=== PATIENT | female | born 1980 | race Caucasian/White ===

== ENCOUNTER 2016-10-17 18:33 | Inpatient (IN) | payer OTHER ==
[~2016-10-17] VITALS: Ht 165.1 cm; Wt 75.2 kg
[~2016-10-17 18:33] MED LIST: FISH1CAP16 PO; [UNRECOGNIZED DRUG - OTHER] PO
[2016-10-17 18:40] VITALS: BP 100/67; PULSE 94; RESP 16; O2SAT 97
[2016-10-17 20:11] LABS: BASOPHILS % (AUTO) 0.1 % (0-3); EOSINOPHILS % (AUTO) 0 % (0-5); MONOCYTES % (AUTO) 6.8 % (4-12); Mean Corpuscular Hemoglobin 30.5 pg (27.0-35.0); NEUTROPHILS % (AUTO) 89.1 % (40-74); Platelet Count 227 bil/L (150-400)
[2016-10-17 20:41] LABS: Magnesium 1.9 mg/dL (1.6-2.6)
[2016-10-17 20:57] LABS: APPEARANCE,URINE CLEAR (CLEAR,HAZY); COLOR,URINE DARK YELLOW (YELLOW); OCCULT BLOOD,URINE LARGE (NEGATIVE); UROBILINOGEN,URINE NORMAL (NORMAL)
--- NOTE | 2016-10-17 21:34 | ED.REPORT ---
HPI-Abd Pain F Under 40 Date of Service Oct 17, 2016 ED Provider: Henry Ambriz DO Pt is an otherwise healthy 36 year old female who presents to the ED complaining of abdominal pain onset today. She c/o associated nausea, vomiting ( 1x) bilaterally back pain, and increased urination. She denies diarrhea and dysuria. The pt denies , and reports that she has a kidney infection a few years ago. The pt was seen at urgent care regarding her symptoms and they determined she had a high WBC, and told her to come to the ER to be tested for a kidney infection. Nursing Notes Stated Complaint: URGENT CARE/HIGH WHITE BLOOD COUNT Chief Complaint: Female Abdominal Pain Allergies: Coded Allergies: No Known Allergies (Verified , 08/21/11) General Time Seen by MD: 21:33 Chief Complaint Abdominal pain Hx Obtained From: Patient Arrived By: Walk-in Sudden in Onset?: No Onset Occurred: 5 - 8 hours ago Symptom Duration: Since onset Severity: Current: Moderate Severity: Maximum: Moderate Recent Healthcare: No recent hospitalization, Recent doctor visit Similar Sx Previous: No Past Medical History Past Medical History Eczema Past Surgical History C-sections (3x) LEEP Smoking History Unknown if Ever Smoker Social History Alcohol Use: "Social" Drug Use: Denies drug use Ambulatory Status Independent Review of Systems GI: Reports: Abdominal pain, Nausea, Denies: Diarrhea, Vomiting Female: Reports: Urination increased Musculoskeletal: Reports: Back pain Complete sys rev & neg: except as marked. Physical Exam Initial Vital Signs Vital Signs (First) Date Time Temp Pulse Resp B/P Pulse Ox O2 Delivery O2 Flow Rate FiO2 10/17/16 18:40 37.3 94 16 100/67 97 Room Air Initial VS: Reviewed Head / Eyes: Atraumatic, Normocephalic, PERRL ENT: Mucous membranes moist, Conjunctiva normal, No scleral icterus Neck: Supple, Full range of motion Extremities: Vascular intact, Neuro intact Skin: Warm, Dry, No cyanosis Neurologic: Alert, Oriented, Nonfocal Psychiatric: Mood/affect normal, Behavior normal General/Constitutional: Awake, Alert, Cooperative, Not toxic appearing Respiratory / Chest: Atraumatic, Breath sounds NL, Breath sounds = bilat Cardiovascular: Heart rate NL, Regular rhythm, Heart sounds NL Abdomen: Atraumatic Diffuse abdominal tenderness Back: Atraumatic, Full range of motion Bilaterally CVA tenderness Interpretation & Diagnostics Lab Results Interpretation Result Diagram: 10/17/16200710/17/162007 Test 10/17/16 20:08 10/17/16 20:35 10/17/16 21:49 White Blood Count 28.2th/mm3 (3.8-10.1) Red Blood Count 4.13mil/mm3 (3.90-5.20) Hemoglobin 12.6g/dL (12.0-15.6) Hematocrit 37.6% (35.0-46.0) Mean Corpuscular Volume 91.0fL (81-100) Mean Corpuscular Hemoglobin 30.5pg (27.0-35.0) Mean Corpuscular Hemoglobin Concent 33.5% (32.0-37.0) Red Cell Distribution Width 12.3% (12.3-15.4) Platelet Count 227bil/L (150-400) Neutrophils (%) (Auto) 89.1% (40-74) Lymphocytes (%) (Auto) 3.6% (14-46) Monocytes (%) (Auto) 6.8% (4-12) Eosinophils (%) (Auto) 0% (0-5) Basophils (%) (Auto) 0.1% (0-3) Sodium Level 133mEq/L (134-144) Potassium Level 4.2mEq/L (3.5-5.2) Chloride Level 97mEq/L (97-108) Carbon Dioxide Level 23mmol/L (18-29) Blood Urea Nitrogen 13mg/dL (6-20) Creatinine 0.66mg/dL (0.57-1.00) Estimat Glomerular Filtration Rate 144mL/min (>59) Glucose Level 115mg/dL (60-99) Lactic Acid Level 2.0mmol/L (0.4-2.0) Calcium Level 9.4mg/dL (8.5-10.1) Magnesium Level 1.9mg/dL (1.6-2.6) Total Bilirubin 0.6mg/dL (0.0-1.2) Aspartate Amino Transf (AST/SGOT) 26U/L (0-50) Alanine Aminotransferase (ALT/SGPT) 26U/L (0-32) Alkaline Phosphatase 72U/L (25-150) Total Protein 7.5g/dL (6.4-8.4) Albumin 4.0g/dL (3.4-5.0) Lipase 18U/L (13-60) Procalcitonin 0.51ng/mL (0.00-0.08) Urine Color Dark yellow (YELLOW) Urine Appearance Clear (CLEAR,HAZY) Urine pH 6.0 (5.0-8.0) Urine Specific [place] 1.026 (1.003-1.035) Urine Protein 100mg/dL (NEG,TRACE) Urine Glucose (UA) Negativemg/dL (NEGATIVE) Urine Ketones Tracemg/dL (NEGATIVE) Urine Occult Blood Large (NEGATIVE) Urine Nitrite Positive (NEGATIVE) Urine Bilirubin Negative (NEGATIVE) Urine Urobilinogen Normalmg/dL (NORMAL) Urine Leukocyte Esterase Trace (NEGATIVE) Urine RBC 3-10/hpf (0-2) Urine WBC >50/hpf (0-5) Urine Epithelial Cells Many/hpf (NONE-MOD) Urine Crystals None seen (NONE SEEN) Urine Bacteria Many/hpf (NONE-FEW) Urine Hyaline Casts None/lpf (NONE) Urine Granular Casts None seen (NONE SEEN) Urine Waxy Casts None seen (NONE SEEN) Urine Red Blood Cell Casts None seen (NONE SEEN) Urine White Blood Cell Casts None seen (NONE SEEN) Urine Mucus None seen (None Seen) Urine Trichomonas None seen (NONE SEEN) Urine Yeast None (NONE SEEN) Urinalysis Comment None Urine Culture Reflexed Indicated Hold Sun Top Tube Received (Received) CT Abd / Pelvis Interpretation Wedge-shaped peripheral hypodensity of the left kidney with adjacent perirenal fat stranding. Findings consistent with acute pyelonephritis of the left kidney. Study type: Abdominal CT IV contrast Interpretation / Wet Read by: Interpret - Radiologist Re-Eval/Medical Decision Med Decision/Clinical Course Taking into account the white blood cell count and abnormal CT scan will admit her for IV fluids, IV antibiotics and urine and blood culture follow-up. Source of Hx: Old records Re-Evaluation/Progress : Time of Eval: 23:32 )( Re-Eval Abdomen: Soft Re-Evaluation/Progress Note: Pt rechecked. She is comfortable. Informed pt of plan for admit. Pt understands and agrees with plan for admit. All questions addressed. Consultation : Referral / Consult Name: Manfred Camarillo MD Consulted With: Hospitalist Call Returned at: 23:18 Repair Armature Winder: Will see patient, Agrees with eval, Agrees with plan, Accepts admit Note: Concurs that pyelonephritis is sepsis Counseled Regarding: Diagnosis, Lab results, Need for admission Discharge & Departure Primary Impression: Pyelonephritis Disposition: ADMITTED TO HOSPITAL Discharge Condition All VS Reviewed: Yes Condition: Stable Referrals: Eben Corbett ND (PCP) Rene Attestation Portions of this note were transcribed by Jovanna Pederson. I, Dr. Ambriz personally performed the history, physical exam and medical decision-making; I reviewed and confirmed the accuracy of the information in the transcribed note. Signed by: Rene Gale, 10/17/16 and 24:00 copies to: bEen Corbett ND, Todd P DO Oct 17, 2016 21:34 Jovanna Waldrop Oct 17, 2016 21:54 Henry Ambriz DO Oct 17, 2016 21:34 Jovanna Waldrop Oct 17, 2016 21:54
[2016-10-17 21:36] VITALS: BP 113/56; PULSE 67; RESP 18; O2SAT 100
[2016-10-17] MEDS ORDERED: HYDROmorphone 0.5 mg/0.5 mL iSecure Syringe IVPUSH PRN (21:50)
[2016-10-17] MEDS ORDERED: Piperacillin-Tazo 3.375 Gm Inj 3.375 GM in Dextrose 5% Minibag Plus 50 ML IV ONE (21:50)
[2016-10-17] MEDS ORDERED: 0.9% Sodium Chloride 1,000 ML IV SCH (21:50)
[2016-10-17] MEDS ORDERED: Ondansetron 2 mg/mL 2 mL Inj IVPUSH PRN (21:55)
[2016-10-17] MEDS ORDERED: Alum-Mag Hydrox-Simeth 30 mL Suspension PO PRN (23:40)
[2016-10-17] MEDS ORDERED: Polyethylene Glycol (PEG) 17 Gm Powder PO PRN (23:40)
[2016-10-18] VITALS (9 sets, daily range): BP systolic 83–122; BP diastolic 48–68; PULSE 74–103; RESP 16–18; O2SAT 96–100
--- NOTE | 2016-10-18 01:11 | NUR ---
ADMIT NOTE Pt arrived to [facility] Room 3001, approx 0000. Pt alert and oriented. Pt able to ambulate from stretcher to bed. Pt states, she feels "woozy" when up. Pt asked to call for assistance for safety. VS obtained. Pt states some headache pain, prn po tylenol given. Pt also reports abdominal pain and bilateral flank tenderness. Pt placed on remote telemetry, process control tech notified. Continue to monitor. Call light in reach. Boyfriend in room. Intentional rounding.
--- NOTE | 2016-10-18 02:02 | PCM.HPMED ---
Subjective Date of Service Oct 18, 2016 Primary Provider: Admitting Physician: Manfred Camarillo MD Primary Care Physician: Eben Corbett ND Attending Physician: Manfred Camarillo MD Admit Status: From the Emergency Department Chief Complaint: Fever or chills, nausea and abdominal and flank pain History of Present Illness: Patient is a 36-year-old female with past medical history remarkable for 3 prior C-sections, LEEP procedure, thermal ablation of the uterine lining due to her irregular menstrual bleeding who presents with 3 days of fever or chills, nausea, flank and abdominal pain. The patient states that on Sunday, October 15 she woke up feeling early poor with subjective fever and chills, abdominal discomfort, and headache. The patient states that when she woke up on October 16 she felt somewhat better and attempted to go to work however the prior day's symptoms returned worse than before with increased left-sided flank pain, and dizziness. The patient denies any dysuria or unusual vaginal discharge at this time. The patient has noticed some mild hematuria increased urgency and frequent sleep and is unsure if the blood not associated with her menstrual cycle at this time given she has irregular bleeding. Review of Systems: A comprehensive review of systems is obtained and all are negative except for what is included in the history of present illness. 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[employer] Hx Alcohol Use: Yes ("Occasional beer now and then") Hx Substance Use: No Hx Tobacco Use: No Smoking Status: Never Smoker Living Arrangement: with Family (in [place]) Exam Vital Signs Vital Sign - Last Date Time Temp Pulse Resp B/P Pulse Ox O2 Delivery O2 Flow Rate FiO2 10/18/16 00:23 101 10/18/16 00:12 37.3 16 122/ 99 Room Air Intake and Output 10/17/16 10/17/16 10/18/16 Cumulative From/Thru 15:00 23:00 07:00 10/17/16 18:40 - 10/18/16 00:04 Intake Total 1000 ml 1000 ml Balance 1000 ml 1000 ml Intake IV Total 1000 ml 1000 ml Exam Gen.: Young pleasant female, in good hygiene, in no acute distress lying in bed with her Eyes: Pupils equal round reactive to light, extraocular motion intact, anicteric sclera, noninjected conjunctiva HENT: Normocephalic atraumatic, moist mucous membranes without central cyanosis , oropharynx clear without cobblestoning mucosa Neck: Supple, trachea midline, without JVD or thyromegaly Cardiovascular: Regular rate and rhythm without murmurs rubs or gallops Lungs: clear auscultation bilaterally without wheezing rales or rhonchi Abdomen: Soft, nontender, nondistended, tympanic to percussion Back: Positive Serge sign on left side Extremities: Pulses intact at dorsalis pedis and radial bilaterally, without cyanosis, clubbing or edema Skin: Warm and diaphoretic, without notable rashes : No Curtis in place Neuro: Nonfocal, able to move all extremities spontaneously Psych: Normal mood and affect Lab and Diagnostics Result Diagram: 10/17/16200710/17/162007 X-Rays, CTs and MRIs Unofficial nighthawk reading Impression 1. Wedge-shaped peripheral hypodensity of the left kidney with perinephric fat stranding. Consistent with acute pyelonephritis of the left kidney. Assessment & Plan Patient is a 36-year-old female with past medical history remarkable for 3 prior C-sections, LEEP procedure, thermal ablation of the uterine lining due to her irregular menstrual bleeding as well as left-sided pyelonephritis in 2010 who presents with 3 days of fever or chills, nausea, flank and abdominal pain. # Sepsis - Sirs positive with White blood cell count of 28.2, pulse of 94, temperature 37.3 and respiratory rate of 16 - Borderline severe sepsis with lactic acid of 2 this will be redrawn with morning labs - IV fluids started in the emergency department with 1 L bolus of normal saline and normal saline continued at 100 mL's per hour - Source of infection left-sided pyelonephritis described below # Acute Left sided pyelonephritis - Patient has a history of left-sided pyelonephritis from 2011 - Patient describes 3 days of worsening fever or chills, nausea, dizziness, left sided flank pain with increased urinary urgency and frequency - Sepsis picture described above, with UA showing many bacteria greater than 50 white blood cells positive nitrites and trace leukocytes esterase making urinary tract infection likely - Preliminary Nighthawk read shows peripheral hypodensity with perinephric fat stranding consistent with acute pyelonephritis - Patient was started on Zosyn overnight this will be good discontinued for less broad antibiotic coverage given patient is relatively antibiotic hernán and a young healthy patient - Rocephin 2000 mg daily # Mild hyponatremia - Sodium of 133 at admission - Normal saline started in the emergency department - Continue NS at 100 mL per hour - Monitor DVT prophylaxis: Enoxaparin 40 mg subcutaneous daily GI prophylaxis: Not indicated at this time CODE STATUS full The patient is admitted for inpatient status given her presenting symptoms, likely diagnosis, possible complications, and required treatments expected length of stay is greater than 2 midnights Pain Evaluation: Adequate Pain Control GI Prophylaxis: Not indicated VTE Prophylaxis Indicated: Meets Criteria for Anticoag Therapy VTE Prophylaxis: Sub-Q Enoxaparin, SCDs VTE Mechanical Devices: Intermittant Pneumatic CD Resuscitation Status: CPR: Attempt Resuscitation Attending Statement The patient was seen and examined together with Dr. Garcia on 10/17 and I agree with the history, exam and plan as outlined in the note above. Lam Jerome DO Oct 18, 2016 01:48 Manfred Camarillo MD Oct 18, 2016 06:58
[2016-10-18] MEDS: 0.9% Sodium Chloride 1,000 ML IV SCH ×3 (05:25→23:19)
[2016-10-18] MEDS: cefTRIAXone Inj 2,000 MG in Dextrose 5% Minibag Plus 50 ML IV SCH (05:56)
[2016-10-18] MEDS: HYDROcodone-APAP 5-325 mg Tablet PO PRN ×4 (06:00→20:34)
[2016-10-18] MEDS: Ondansetron 2 mg/mL 2 mL Inj IVPUSH PRN ×2 (06:00→13:48)
--- NOTE | 2016-10-18 06:36 | NUR ---
BP During routine VS, BP 83/48. Pt states, "My blood pressure is usually low." Night resident notified of BP. Orders to continued IVF: NS @ 100ml/hr.
--- NOTE | 2016-10-18 07:08 | DRSVH ---
PROCEDURE: CT ABDOMEN AND PELVIS WITH CONTRAST ([id number]) INDICATIONS: diffuse pain, 28K wbc count TECHNIQUE: After the administration of intravenous contrast, 5 mm thick sections acquired from the diaphragm to the symphysis. 5 mm coronal and sagittal reformats were acquired. For radiation dose reduction, the following was used: automated exposure control, adjustment of mA and/or kV according to patient siz e. COMPARISON: None. FINDINGS: Image quality: Excellent. ABDOMEN: Lung bases: Lung bases are clear. Heart size is normal. Solid organs: Normal liver, gallbladder, pancreas, spleen adrenal glands and right kidney. There is a wedge-shaped area of decreased density in the posterior lateral left kidney measuring 3.0 x 3.7 CM. Mild left ureterectasis with no obstructing lesions identified. Heterogeneous uterus is present. Peritoneum and bowel: Bowel loops demonstrate normal wall thickness and caliber. No free fluid or a ir. Nodes and vessels: No retroperitoneal or mesenteric adenopathy by size criteria. Aorta and inferior vena cava are normal in size. Miscellaneous: Trace free fluid in the pelvic cul-de-sac.. PELVIS: Genitourinary: Bladder wall thickness is normal. Heterogeneous uterine parenchyma. Miscellaneous: No inguinal hernias or adenopathy. Bones: No suspicious bony lesions. No vertebral body compression fractures. IMPRESSION: 1. Left pyelonephritis with phlegmon or abscess. 2. There are no discrepancies with the preliminary report. Dictated by: Trever Yates M.D. on 10/18/2016 at 6:54 Approved by: Trever Yates M.D. on 10/18/2016 at 7:00
--- NOTE | 2016-10-18 10:32 | NUR ---
Case Management: TUNDE given and explained to pt. Yesika FOSTER RN
--- NOTE | 2016-10-18 14:55 | NUR ---
Social Work-screening: Data:EMR Reviewed. Pt is a 36 y/o female who was admitted on 10/17/16 for pyelonephritis per H&P. Pt's insurance is Self pay and PCP is Eben Corbett Md. EMR Reviewed. SW met with pt, boyfriend, friend, and sister at bedside, SW role explained. Pt is normally independent at baseline and does not have insurance. SW confirmed that [facility] has received referral. SW provided pt with [facility] application as well. Pt confirms she has never completed DPOA/ advanced directive paperwork,pt declining any information. Pt's family to provide transport home at discharge. SW provided phone number and plan on white board in room. No anticipated discharge needs. SW will continue to follow if needs arise. Assessment:pt who is independent at baseline. Plan:Pt to discharge home when medically stable via POV. Pt has been provided with [facility] application and [facility] to see pt. No anticipated discharge needs. SW will continue to follow if needs arise. VIJAYA Saldivar
--- NOTE | 2016-10-18 15:13 | NUR ---
Pain: Pt a/o, VSS, tele SR 70s-80s, RA O2 sats 95% and greater. Up ad shirley in room, no gait instability noted, showered independently. Pt c/o headache that she feels is related to shivering, warm blankets provided as needed. Vicodin given x1, not very effective for pain. Flexeril given x1, pt sleeping approx 30 minutes later. Friend and SO at bedside, care ongoing.
--- NOTE | 2016-10-18 15:24 | PCM.PNMED ---
Subjective Date of Service Oct 18, 2016 Subjective Still experiencing intermittent sweats chills, in addition to tightness in her neck she believes is causing worsening headache. Overall she is improved from yesterday however. Notes some reddish coloration to urine but no nancy blood. Denies flank pain currently. Denies any shortness of breath or chest pain. Exam Vital Signs Vital Sign - Last Date Time Temp Pulse Resp B/P Pulse Ox O2 Delivery O2 Flow Rate FiO2 10/18/16 12:31 37.0 75 16 93/60 100 Room Air Intake and Output 10/17/16 10/17/16 10/18/16 Cumulative From/Thru 15:00 23:00 07:00 10/17/16 18:40 - 10/18/16 06:03 Intake Total 1000 ml 621 ml 1621 ml Output Total 350 ml 350 ml Balance 1000 ml 271 ml 1271 ml Intake Oral 200 ml 200 ml IV Total 1000 ml 421 ml 1421 ml Output Urine Total 350 ml 350 ml General: Alert, Oriented X3, Cooperative, Moderate Distress Mouth: Mucous Membr Moist/[place] Neck: Supple, Other (hypertonicity paraspinal muscles of cervical region) Chest & Lungs: Clear to auscultation & percussion Cardiovascular: Regular Rate/Rhythm Abdomen: Tender, Distended Extremities: No cyanosis/clubbing/edma bilat Neurological: Grossly Neurologically Intact IVs and Medications Medications Reviewed: Medications were reviewed in detail Lab and Diagnostics Result Diagram: 10/17/16200710/18/16 0510 X-Rays, CTs and MRIs Unofficial nighthawk reading Impression 1. Wedge-shaped peripheral hypodensity of the left kidney with perinephric fat stranding. Consistent with acute pyelonephritis of the left kidney. Assessment & Plan Patient is a 36-year-old female with past medical history remarkable for 3 prior C-sections, LEEP procedure, thermal ablation of the uterine lining due to her irregular menstrual bleeding as well as left-sided pyelonephritis in 2010 who presents with 3 days of fever or chills, nausea, flank and abdominal pain. # Sepsis - Sirs positive with White blood cell count of 28.2, pulse of 94, temperature 37.3 and respiratory rate of 16 - Borderline severe sepsis with lactic acid of 2 this will be redrawn with morning labs, now downward trending. - Continue IV fluids started in the emergency department at 100cc/hr, consider tapering with stabilizing condition and good PO intake of fluids. - Source of infection left-sided pyelonephritis described below # Acute Left sided pyelonephritis - Patient has a history of left-sided pyelonephritis from 2010 - Patient describes 3 days of worsening fever or chills, nausea, dizziness, left sided flank pain with increased urinary urgency and frequency - Sepsis picture described above, with UA showing many bacteria greater than 50 white blood cells positive nitrites and trace leukocytes esterase making urinary tract infection likely - Preliminary Nighthawk read shows peripheral hypodensity with perinephric fat stranding consistent with acute pyelonephritis - Patient was started on Zosyn overnight this will be good discontinued for less broad antibiotic coverage given patient is relatively antibiotic hernán and a young healthy patient - Continue Rocephin 2000 mg daily while awaiting culture result. # Mild hyponatremia - Sodium of 133 at admission, now normalized - Normal saline started in the emergency department - Continue NS at 100 mL per hour - Monitor DVT prophylaxis: Enoxaparin 40 mg subcutaneous daily GI prophylaxis: Not indicated at this time CODE STATUS full The patient is admitted for inpatient status given her presenting symptoms, likely diagnosis, possible complications, and required treatments expected length of stay is greater than 2 midnights Pain Evaluation: Adequate Pain Control GI Prophylaxis: Not indicated VTE Prophylaxis: Sub-Q Enoxaparin, SCDs VTE Mechanical Devices: Intermittant Pneumatic CD Resuscitation Status: CPR: Attempt Resuscitation Time spent 25 minutes Aleks Husain DO Oct 18, 2016 15:24
--- NOTE | 2016-10-18 17:01 | NUR ---
Fever: Pt with temp of 38.7, MD notified, no new orders received. 2 Vicodin given for temp and c/o headache pain. Care ongoing
[2016-10-19] VITALS (8 sets, daily range): BP systolic 89–102; BP diastolic 45–68; PULSE 63–81; RESP 16–28; O2SAT 93–100
[2016-10-19] MEDS: HYDROcodone-APAP 5-325 mg Tablet PO PRN ×6 (00:37→23:19)
[2016-10-19] MEDS: cefTRIAXone Inj 2,000 MG in Dextrose 5% Minibag Plus 50 ML IV SCH (05:03)
--- NOTE | 2016-10-19 06:02 | NUR ---
PAIN Pt has had c/o pain, primarily in Left flank. Pt rates pain "4-6" when needing pain medication. Pt has been receiving pain medication approx Q4H as ordered. Pt has been able to sleep. Pt is comfortable while in bed, does have some pain when up to BR. Continue to monitor. Call light in reach. Intentional rounding.
[2016-10-19] MEDS: 0.9% Sodium Chloride 1,000 ML IV SCH ×2 (09:56→20:19)
[2016-10-19 11:10] LABS: BASOPHILS % (AUTO) 0.1 % (0-3); EOSINOPHILS % (AUTO) 0.3 % (0-5); MONOCYTES % (AUTO) 11.4 % (4-12); Mean Corpuscular Hemoglobin 30.3 pg (27.0-35.0); Mean Corpuscular Volume 93.8 fL (81-100); NEUTROPHILS % (AUTO) 77.6 % (40-74); Platelet Count 195 bil/L (150-400)
--- NOTE | 2016-10-19 12:46 | PCM.PNMED ---
Subjective Date of Service Oct 19, 2016 Subjective Patient complaining of serious headache today which is her main complaint. It has been unresponsive to Vicodin but only 2 tabs effectively relieve headache for full 4 hours, Tylenol as some use as well. Still notes some vague tightness of chest generalized malaise but has not been experiencing sweats or chills overnight. No reported fevers in 24 hours. Exam Vital Signs Vital Sign - Last Date Time Temp Pulse Resp B/P Pulse Ox O2 Delivery O2 Flow Rate FiO2 10/19/16 09:10 64 10/19/16 08:39 36.4 16 98/61 97 Room Air Intake and Output 10/18/16 10/18/16 10/19/16 Cumulative From/Thru 15:00 23:00 07:00 10/17/16 18:40 - 10/19/16 05:51 Intake Total 2143 ml 1388 ml 5152 ml Output Total 500 ml 1600 ml 2450 ml Balance 1643 ml -212 ml 2702 ml Intake Oral 1100 ml 300 ml 1600 ml IV Total 1043 ml 1088 ml 3552 ml Output Urine Total 500 ml 1600 ml 2450 ml Exam General: Alert, Oriented X3, Cooperative, Moderate Distress Mouth: Mucous Membr Moist/[place] Neck: Supple, Chest & Lungs: Clear to auscultation & percussion Cardiovascular: Regular Rate/Rhythm Abdomen: Tender, Distended Extremities: No cyanosis/clubbing/edma bilat Neurological: Grossly Neurologically Intact IVs and Medications Medications Reviewed: Medications were reviewed in detail Lab and Diagnostics Result Diagram: 10/19/16 1054 10/18/16 0510 X-Rays, CTs and MRIs Unofficial nighthawk reading Impression 1. Wedge-shaped peripheral hypodensity of the left kidney with perinephric fat stranding. Consistent with acute pyelonephritis of the left kidney. Assessment & Plan Patient is a 36-year-old female with past medical history remarkable for 3 prior C-sections, LEEP procedure, thermal ablation of the uterine lining due to her irregular menstrual bleeding as well as left-sided pyelonephritis in 2010 who presents with 3 days of fever or chills, nausea, flank and abdominal pain. # Sepsis - Sirs positive with White blood cell count of 28.2, pulse of 94, temperature 37.3 and respiratory rate of 16 - Borderline severe sepsis with lactic acid of 2 this will be redrawn with morning labs, now downward trending. - Continue IV fluids started in the emergency department at 100cc/hr, consider tapering with stabilizing condition and good PO intake of fluids. , today will taper to 75cc/hr. - Source of infection left-sided pyelonephritis described below # Acute Left sided pyelonephritis - Patient has a history of left-sided pyelonephritis from 2010 - Patient describes 3 days of worsening fever or chills, nausea, dizziness, left sided flank pain with increased urinary urgency and frequency - Sepsis picture described above, with UA showing many bacteria greater than 50 white blood cells positive nitrites and trace leukocytes esterase making urinary tract infection likely - Imaging studies confirm pyelonephritis - Patient was started on Zosyn overnight this will be good discontinued for less broad antibiotic coverage given patient is relatively antibiotic hernán and a young healthy patient - Taper Rocephin from 2000 mg daily to 1000mg while awaiting culture result.Anticipate transition to oral antibiotics tomorrow with stable PO intake. - Cultures demonstrate barriga-sensitivity. # Mild hyponatremia - Sodium of 133 at admission, now normalized - Normal saline started in the emergency department - Continue NS at 75 mL per hour - Monitor DVT prophylaxis: Enoxaparin 40 mg subcutaneous daily GI prophylaxis: Not indicated at this time CODE STATUS full The patient is admitted for inpatient status given her presenting symptoms, likely diagnosis, possible complications, and required treatments expected length of stay is greater than 2 midnights Pain Evaluation: Adequate Pain Control GI Prophylaxis: Not indicated VTE Prophylaxis: Sub-Q Enoxaparin, SCDs VTE Mechanical Devices: Intermittant Pneumatic CD Resuscitation Status: CPR: Attempt Resuscitation Time spent 30 minutes Aleks Husain DO Oct 19, 2016 12:46
--- NOTE | 2016-10-19 17:56 | NUR ---
Pain/SOB The pt continues to have difficult to control pain, but overall has seen an improvement in comparison to yesterday. Some SOB/pain with a chronic headache is being reported, and the MD is aware. The SOB/pain occurs with deep breaths, and is thought to be related to ureter pain.
[2016-10-19] MEDS: Ondansetron 2 mg/mL 2 mL Inj IVPUSH PRN (18:05)
[2016-10-20] VITALS (9 sets, daily range): BP systolic 96–120; BP diastolic 47–79; PULSE 53–79; RESP 16–22; O2SAT 88–98
[2016-10-20] MEDS: HYDROcodone-APAP 5-325 mg Tablet PO PRN (03:23)
[2016-10-20] MEDS ORDERED: cefTRIAXone Inj 1,000 MG in Dextrose 5% Minibag Plus 50 ML IV SCH ×2 (05:30→17:10)
--- NOTE | 2016-10-20 07:31 | NUR ---
Pain Pt c/o headache 12/07 pain and was maxed out on acetaminophen 24hr allowance. MD ordered Oxycodone 5mg and Lorazepam. Pt appeared to be asleep upon reassessment and said that she was able to sleep a little bit. Pt encouraged to get out of bed and sit in a chair to provide comfort for c/o headache. Pt refused to get out of bed at this time. Call light within reach and friend at bedside. Care continues.
--- NOTE | 2016-10-20 09:55 | DRSVH ---
PROCEDURE: X-RAY CHEST ONE VIEW, PORTABLE ([id number]) INDICATIONS: chest discomfort TECHNIQUE: One view of the chest was acquired. COMPARISON: None. FINDINGS: Surgical changes and devices: None. Lungs and pleura: Bibasilar infiltrates are present, associated with atelectasis and small pleural ef fusions. No pneumothorax. Mediastinum: Mediastinal contours appear normal. Heart size is normal. Bones and chest wall: No suspicious bony lesions. Overlying soft tissues appear unremarkable. IMPRESSION: Probable bilateral lower lobe pneumonia for clinical correlation. Dictated by: Mychal Webster M.D. on 10/20/2016 at 9:53 Approved by: Mychal Webster M.D. on 10/20/2016 at 9:54
[2016-10-20] MEDS: 0.9% Sodium Chloride 1,000 ML IV SCH (10:17)
[2016-10-20] MEDS ORDERED: cefTRIAXone Inj 2,000 MG in Dextrose 5% Minibag Plus 50 ML IV SCH (11:00)
--- NOTE | 2016-10-20 13:09 | NUR ---
IV toradol/pain Pt c/o FIGUEROA for several days. Several different medications given with minimal relief. IV toradol given just prior to noon, pt appears 100% better and states pain is now 2/10. Tele now d/c. Pt ambulated on unit several times. Will continue to monitor.
[2016-10-20 15:15] LABS: BASOPHILS % (AUTO) 0.1 % (0-3); EOSINOPHILS % (AUTO) 0.3 % (0-5); MONOCYTES % (AUTO) 10.6 % (4-12); Mean Corpuscular Hemoglobin 30.7 pg (27.0-35.0); Mean Corpuscular Volume 92.6 fL (81-100); NEUTROPHILS % (AUTO) 72.7 % (40-74); Platelet Count 252 bil/L (150-400)
--- NOTE | 2016-10-20 15:32 | DRSVH ---
PROCEDURE: CT CHEST WITHOUT CONTRAST ([id number]) INDICATIONS: ? pneumonia TECHNIQUE: Noncontrast 5 mm thick sections acquired from the pulmonary apices to the posterior costophrenic angl es. 7 mm thick coronal and sagittal MIP reformats were then acquired. For radiation dose reduction, the following was used: automated exposure control, adjustment of mA and/or kV according to patient size. COMPARISON: [facility], CT, CT ABD PELVIS W CON, 10/17/2016, 22:12 FINDINGS: Image quality: Excellent. Lungs and pleura: There are small bilateral low density pleural effusions. There is consolidation of the bilateral lung bases. These findings are new when compared with the prior CT dated 10/17/16. Air b ronchograms are present bilaterally in the consolidated portions of the lung bases. The upper lungs a re well-aerated. A 3 mm diameter pulmonary nodule is present at the posterior left apex. Mediastinum: Heart size is normal. There is a trace pericardial effusion. No mediastinal adenopathy by size criteria. Thoracic aorta and central pulmonary arteries are normal in size. Esophagus is n ormal in caliber. No hiatal hernia. Bones and chest wall: No suspicious bony lesions. No vertebral body compression fractures. No axil kori or supraclavicular adenopathy by size criteria. Thyroid gland is unremarkable. Abdomen: Visualized upper abdominal solid organs and bowel loops appear normal in the absence of con trast. IMPRESSION: 1. New bilateral low density pleural effusions and basilar consolidation when compared with the CT da pietro 10/17/16. These findings suggest aspiration/infection. Please correlate clinically. Dictated by: Madison Hastings M.D. on 10/20/2016 at 15:26 Approved by: Madison Hastings M.D. on 10/20/2016 at 15:30
[2016-10-20] MEDS ORDERED: Piper-Tazo 3.375 Gm/50 mL D5W Minibag Plus - Q8H over 4 hrs IV ONE ×2 (15:35)
--- NOTE | 2016-10-20 15:38 | PCM.PNMED ---
Subjective Date of Service Oct 20, 2016 Subjective Patient continues to feel unwell. Has a tightness in her chest which is worse with deep breaths. She has severe headache which has not responded when necessary medications. Appetite is poor energy level is low. Demonstrated fevers overnight on 2 occasions. Exam Vital Signs Vital Sign - Last Date Time Temp Pulse Resp B/P Pulse Ox O2 Delivery O2 Flow Rate FiO2 10/20/16 12:47 36.4 68 18 120/79 97 Room Air 10/20/16 05:16 2.00 Intake and Output 10/19/16 10/19/16 10/20/16 Cumulative From/Thru 15:00 23:00 07:00 10/17/16 18:40 - 10/20/16 06:21 Intake Total 2226 ml 2672 ml 67778 ml Output Total 640 ml 900 ml 3990 ml Balance 1586 ml 1772 ml 6060 ml Intake Oral 940 ml 400 ml 2940 ml IV Total 1286 ml 2272 ml 7110 ml Output Urine Total 640 ml 900 ml 3990 ml # Voids 1 1 Exam General: Alert, Oriented X3, Cooperative, Moderate Distress Mouth: Mucous Membr Moist/[place] Neck: Supple, Chest & Lungs: Coarse breath sounds diffusely with diminished airflow in lung bases Cardiovascular: Regular Rate/Rhythm Abdomen: Tender, Distended Extremities: No cyanosis/clubbing/edema bilat Neurological: Grossly Neurologically Intact IVs and Medications Medications Reviewed: Medications were reviewed in detail Lab and Diagnostics Result Diagram: 10/20/16 1510 10/18/16 0510 X-Rays, CTs and MRIs Unofficial nighthawk reading Impression 1. Wedge-shaped peripheral hypodensity of the left kidney with perinephric fat stranding. Consistent with acute pyelonephritis of the left kidney. Assessment & Plan Patient is a 36-year-old female with past medical history remarkable for 3 prior C-sections, LEEP procedure, thermal ablation of the uterine lining due to her irregular menstrual bleeding as well as left-sided pyelonephritis in 2010 who presents with 3 days of fever or chills, nausea, flank and abdominal pain. # Sepsis - Sirs positive with White blood cell count of 28.2, pulse of 94, temperature 37.3 and respiratory rate of 16 - Borderline severe sepsis with lactic acid of 2 this will be redrawn with morning labs, now downward trending. - Continue IV fluids started in the emergency department at 100cc/hr, consider tapering with stabilizing condition and good PO intake of fluids. , tapered to 75cc/hr yesterday, now discontinued given effusions and lower lobes of lungs. - Source of infection left-sided pyelonephritis described below, there is some concern for HCAP versus ARDS at this time given Chest CT scan findings # Acute Left sided pyelonephritis - Patient has a history of left-sided pyelonephritis from 2010 - Patient described 3 days of worsening fever or chills, nausea, dizziness, left sided flank pain with increased urinary urgency and frequency - Sepsis picture described above, with UA showing many bacteria greater than 50 white blood cells positive nitrites and trace leukocytes esterase making urinary tract infection likely - Imaging studies confirm pyelonephritis - Patient was started on Zosyn overnight this will be good discontinued for less broad antibiotic coverage given patient is relatively antibiotic hernán and a young healthy patient - Taper Rocephin from 2000 mg daily to 1000mg, but given additional concern for hospital-acquired pneumonia with transition back to Zosyn therapy. - Cultures demonstrate barriga-sensitivity of urine and blood cultures currently negative. #Bilateral lower lobe infiltrate versus effusion - Giving clear lung craft demonstrated on CT abdomen a couple of days prior, these are new findings and if this is truly a pneumonia may represent a hospital -acquired infection - Is also a possibility given pain and guarding related to pyelonephritis, the patient is under ventilating and this is a representation of atelectasis due to poor respiratory effort - Patient may also be developing a reactive condition, also in regards to her pyelonephritis, of the long such as ARDS - Infectious disease has been consulted for further evaluation of patient consideration of his condition - We will trial incentive spirometry at this time in addition to transitioning antibiotic coverage while etiology remains unclear. # Mild hyponatremia - Sodium of 133 at admission, now normalized - Normal saline started in the emergency department - Monitor DVT prophylaxis: Enoxaparin 40 mg subcutaneous daily GI prophylaxis: Not indicated at this time CODE STATUS full Disposition pending further evaluation of pulmonary process in addition to improve patient condition. Anticipate at least 1-2 days. Pain Evaluation: Pain not Controlled GI Prophylaxis: Not indicated VTE Prophylaxis: Sub-Q Enoxaparin, SCDs VTE Mechanical Devices: Venous Foot Pump Resuscitation Status: CPR: Attempt Resuscitation Time spent 35 minutes Aleks Husain DO Oct 20, 2016 15:38
[2016-10-20] MEDS ORDERED: Piperacillin-Tazo 3.375 Gm Inj 3.375 GM in Dextrose 5% Minibag Plus 50 ML IV SCH (20:30)
[2016-10-21 04:06] LABS: Mean Corpuscular Hemoglobin 30.2 pg (27.0-35.0); Mean Corpuscular Volume 90.4 fL (81-100)
[2016-10-21 05:56] VITALS: BP 114/68; PULSE 68; RESP 18; O2SAT 94
[2016-10-21] MEDS ORDERED: cefTRIAXone Inj 1,000 MG in Dextrose 5% Minibag Plus 50 ML IV SCH (08:40)
[2016-10-21] MEDS ORDERED: SULF1TAB7 PO (10:16)
--- NOTE | 2016-10-21 10:19 | PCM.DIMED ---
Discharge Instructions Date of Service Oct 21, 2016 Dates of Hospitalization Oct 17, 2016 at 23:49 Discharge Diagnosis Discharge Diagnosis E. Coli Pyelonephritis Diet Discharge Diet: No restrictions Activity Discharge Activity: No restrictions Call your provider Call your provider for: Fever or Chills, Shortness of breath Patient Instructions Patient Instructions Finish up the bottle of antibiotics - Sulfamethoxazole, that you already have from before admission. Follow-up Provider: Eben Corbett ND Follow-up with PCP in: 1 week Laisha Barbosa MD Oct 21, 2016 10:19
[2016-10-21] MEDS ORDERED: FERR325T6 PO (10:34)
[2016-10-21] MEDS ORDERED: ASCO250T7 PO (10:34)
[2016-10-21 10:42] VITALS: BP 124/81; PULSE 66; RESP 16; O2SAT 97
--- NOTE | 2016-10-21 11:21 | NUR ---
Discharge Pt d/c home with bf and best friend at 1110, ambulating off with and aide. Pt medicated for pain prior to leaving. IV d/c. VSS. All personal belongings left with pt. Discharge info discussed with pt, all questions answered.
--- NOTE | 2016-10-21 11:33 | NUR ---
Social Work: Discharge Data: Pt is on day 4 of hospitalization. EMR reviewed, pt discussed in rounds. D/C orders are in. states no d/c planning needs. CAB STATION ATTENDANT will continue to follow if needs arise. Assessment: Pt who is independent at baseline. Plan: Pt will d/c home via POV today. states no d/c planning needs. CAB STATION ATTENDANT will continue to follow if needs arise. VIJAYA Pa Addendum: 10/21/16 at 1200 by CARLOS ACHARYA SS Pt called CAB STATION ATTENDANT post discharge asking about her insurance status. CAB STATION ATTENDANT check process account and could not find information pt needed. CAB STATION ATTENDANT called [facility], requested they call pt on Sunday morning. CAB STATION ATTENDANT had REGULATORY AFFAIRS DIRECTOR mail pt a tawny care application. VIJAYA Pa
--- NOTE | 2016-10-21 12:23 | CONS ---
[address] [address] CONSULTATION REPORT PATIENT: GABRIEL CHANDRA : 1980 MR#: [id number] ADMIT: 10/17/2016 JOB ID: [id number] DATE OF SERVICE: 10/20/2016 REFERRING PHYSICIAN: I thank Dr. Aleks Husain for this timely consult. REASON FOR CONSULTATION: Pyelonephritis. 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 She has a history of pyelonephritis some five years ago, and also has had some gynecologic issues, including a need for a LEEP procedure and uterine surgery for irregular bleeding, but otherwise, is very healthy. She does not take any medications on a daily basis. She has undergone three sections in the past. She was admitted to this facility on October 18, with a three day history of fevers, chills, nausea, and left-sided flank pain. These symptoms started suddenly, and have been progressive. In addition to the above-mentioned symptoms, she has had some headaches, as well as anorexia. By October 17, the patient felt so poorly that she could no longer go to work, came for evaluation on the , and was admitted because primarily fevers, chills, nausea, and flank pain. PAST MEDICAL HISTORY: 1. Pyelonephritis, 2010. 2. Irregular menses, eventually requiring thermal ablation of the uterine lining. 3. Status post . 4. History of right foot bunion reduction. 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 She is a rare alcohol user, who has never smoked. She lives with her and children. FAMILY HISTORY: Negative for tuberculosis in first or second-degree relatives. REVIEW OF SYSTEMS: At this point, the patient has no residual headache. She denies visual complaints or sore throat. She feels mildly short of breath, and at times, has a dry cough. Nausea and anorexia have essentially resolved. She still has perhaps a twinge of flank pain, but is diminished. She no longer has dysuria, urgency, or frequency. No skin rash has been reported. The remainder of the review of systems is negative. PHYSICAL EXAMINATION: Reveals a woman, who is afebrile, temperature 36.4, pulse 68, respiratory rate 18, blood pressure 120/79. She is saturating well on room air. She is in no acute distress. She is awake, alert, conversational. Examination of the head: No evidence of trauma. The eyes are without conjunctivitis or scleral icterus. The sinuses are nontender. The oral cavity without thrush, hairy leukoplakia, or pharyngitis. The neck is without adenopathy. The lungs are clear. Cardiac tones: Regular rate and rhythm. The abdomen is soft and nontender. There is no residual flank tenderness that I can appreciate. There is no suprapubic tenderness. She does not have a Curtis catheter. There is no evidence for synovitis. No skin rash. She is neurologically intact. LABORATORY STUDIES: Includes white blood count 10,700, with normal diff. This is much improved from a peak of 28,000 when she first presented. Creatinine is 0.77. The procalcitonin 0.87, down from 1.65 on the . Liver function tests are normal. Albumin 3.3. Urinalysis on admission showed greater than 50 white cells. It has not been repeated. That urine culture grew an E coli, which was susceptible to all tested agents. Blood cultures negative. IMAGING STUDIES: Includes an abdominal CT scan, done on admission, which showed left pyelonephritis. A chest x-ray, done on the because of some vague chest discomfort, showed possible bilateral lower lobe infiltrates. This led to a CT scan of the chest, which showed bilateral pleural effusions and consolidation. The radiologist raised the question of aspiration or new pneumonia. IMPRESSION: This patient is undoubtedly much improved, compared to admission two and half days or so ago. It is typical for patients with severe pyelonephritis, as this patient demonstrates, to require 3-5 days to really dramatically improve. Often, these patients are febrile for as long as five days, and often, these patients are febrile for as long as five days, and may take a few days to really completely turn around. At this point, the patient has stable vital signs, and looks quite comfortable breathing room air and moving around the room without difficulty. The appearance of the infiltrates on chest radiograph and chest CT scan is a bit concerning for the possibility of ARDS, or some similar process, but in view of her benign clinical appearance, I think I would be inclined to wait and watch, rather than perform any new investigations. RECOMMENDATIONS: 1. Continue with ceftriaxone. 2. I would watch the patient in the hospital for at least another day or two to make certain that her pulmonary process is resolving. 3. The initial CT scan suggested the possibility of a developing renal abscess, and this will likely need to be re-imaged at some point, either by ultrasound or CT scan. 4. These findings discussed in detail with Dr. Husain on the afternoon of October 20.
--- NOTE | 2016-10-21 12:34 | PCM.DC.MED ---
Discharge Summary Date of Service Oct 21, 2016 Dates of Hospitalization Date of Hospital Admission Oct 17, 2016 at 23:49 Date of Discharge: Oct 21, 2016 Providers: Admitting Physician: Manfred Camarillo MD Primary Care Physician: Eben Corbett ND Attending Physician: Vanessa Barbosa MD Diagnosis at Time of Discharge Diagnosis at Time of Discharge E. Coli Pyelonephritis Anemia Bibasilar Atelectasis versus Pneumonia Procedures XRay, CTs & MRIs Unofficial nighthawk reading Impression 1. Wedge-shaped peripheral hypodensity of the left kidney with perinephric fat stranding. Consistent with acute pyelonephritis of the left kidney. Other Diagnostics [facility] Diagnostic Imaging Department [place], [place] [id number] Patient Name: GABRIEL CHANDRA MR#: [id number] Location: [place] Ordering Phys: Aleks Husain DO Date of Service: 10/20/16 1045 PROCEDURE: CT CHEST WITHOUT CONTRAST ([id number]) INDICATIONS: ? pneumonia TECHNIQUE: Noncontrast 5 mm thick sections acquired from the pulmonary apices to the posterior costophrenic angles. 7 mm thick coronal and sagittal MIP reformats were then acquired. For radiation dose reduction, the following was used: automated exposure control, adjustment of mA and/or kV according to patient size. COMPARISON: [facility], CT, CT ABD PELVIS W CON, 10/17/2016, 22:12 FINDINGS: Image quality: Excellent. Lungs and pleura: There are small bilateral low density pleural effusions. There is consolidation of the bilateral lung bases. These findings are new when compared with the prior CT dated 10/17/16. Air bronchograms are present bilaterally in the consolidated portions of the lung bases. The upper lungs are well-aerated. A 3 mm diameter pulmonary nodule is present at the posterior left apex. Mediastinum: Heart size is normal. There is a trace pericardial effusion. No mediastinal adenopathy by size criteria. Thoracic aorta and central pulmonary arteries are normal in size. Esophagus is normal in caliber. No hiatal hernia. Bones and chest wall: No suspicious bony lesions. No vertebral body compression fractures. No axillary or supraclavicular adenopathy by size criteria. Thyroid gland is unremarkable. Abdomen: Visualized upper abdominal solid organs and bowel loops appear normal in the absence of contrast. IMPRESSION: 1. New bilateral low density pleural effusions and basilar consolidation when compared with the CT dated 10/17/16. These findings suggest aspiration/ infection. Please correlate clinically. Dictated by: Madison Hastings M.D. on 10/20/2016 at 15:26 Approved by: Madison Hastings M.D. on 10/20/2016 at 15:30 Brief History Patient is a 36-year-old female with past medical history remarkable for 3 prior C-sections, LEEP procedure, thermal ablation of the uterine lining due to her irregular menstrual bleeding who presents with 3 days of fever or chills, nausea, flank and abdominal pain. The patient states that on Sunday, October 15 she woke up feeling early poor with subjective fever and chills, abdominal discomfort, and headache. The patient states that when she woke up on October 16 she felt somewhat better and attempted to go to work however the prior day's symptoms returned worse than before with increased left-sided flank pain, and dizziness. The patient denies any dysuria or unusual vaginal discharge at this time. The patient has noticed some mild hematuria increased urgency and frequent sleep and is unsure if the blood not associated with her menstrual cycle at this time given she has irregular bleeding. Hospital Course Patient is a 36-year-old female with past medical history remarkable for 3 prior C-sections, LEEP procedure, thermal ablation of the uterine lining due to her irregular menstrual bleeding as well as left-sided pyelonephritis in 2010 who presents with 3 days of fever or chills, nausea, flank and abdominal pain. # Sepsis - Sirs positive with White blood cell count of 28.2 on admission - Borderline severe sepsis with lactic acid of 2 on admission - Responded to IV ceftriaxone. # Acute Left sided pyelonephritis - Patient has a history of left-sided pyelonephritis from 2010 - Patient described 3 days of worsening fever or chills, nausea, dizziness, left sided flank pain with increased urinary urgency and frequency - Escherichia coli on urine culture - Imaging studies confirm pyelonephritis - Pansensitive Escherichia coli on urine culture. Going home now on oral Septra left over supply, that she had started just the day before admission. #Bilateral lower lobe infiltrate versus effusion - She has no current symptoms. - Either the ceftriaxone was effective for this pneumonia or this was quite severe atelectasis seen on the CT scan. - If symptoms do develop then she obviously would need additional antibiotic coverage besides the sulfa. # Mild hyponatremia - Sodium of 133 at admission, now normalized # Anemia - Hemoglobin today down to 9.1. - She says she has always been mildly anemic. - She agrees to start iron with vitamin C daily and to follow this up with her nurse practitioner Dr. Eben Corbett. 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 She obviously has significant microtrauma to the kidneys on a daily basis. I have suggested to her that if she develops recurrent pyelonephritis for the third time that she should look into a different occupation with less potential to traumatize the kidneys. Exam Vital Signs (Last) Date Time Temp Pulse Resp B/P Pulse Ox O2 Delivery O2 Flow Rate FiO2 10/21/16 05:56 36.2 68 18 114/68 94 Room Air 10/20/16 05:16 2.00 Exam Alert and oriented 3, no apparent distress. Heart is regular rate and rhythm without murmur Lungs are clear to auscultation bilaterally There is no flank tenderness There is no ankle edema Test 10/17/16 20:08 10/17/16 20:35 10/17/16 21:49 10/18/16 05:10 Magnesium Level 1.9mg/dL (1.6-2.6) Lipase 18U/L (13-60) Urine Color Dark yellow (YELLOW) Urine Appearance Clear (CLEAR,HAZY) Urine pH 6.0 (5.0-8.0) Urine Specific [place] 1.026 (1.003-1.035) Urine Protein 100mg/dL (NEG,TRACE) Urine Glucose (UA) Negativemg/dL (NEGATIVE) Urine Ketones Tracemg/dL (NEGATIVE) Urine Occult Blood Large (NEGATIVE) Urine Nitrite Positive (NEGATIVE) Urine Bilirubin Negative (NEGATIVE) Urine Urobilinogen Normalmg/dL (NORMAL) Urine Leukocyte Esterase Trace (NEGATIVE) Urine RBC 3-10/hpf (0-2) Urine WBC >50/hpf (0-5) Urine Epithelial Cells Many/hpf (NONE-MOD) Urine Crystals None seen (NONE SEEN) Urine Bacteria Many/hpf (NONE-FEW) Urine Hyaline Casts None/lpf (NONE) Urine Granular Casts None seen (NONE SEEN) Urine Waxy Casts None seen (NONE SEEN) Urine Red Blood Cell Casts None seen (NONE SEEN) Urine White Blood Cell Casts None seen (NONE SEEN) Urine Mucus None seen (None Seen) Urine Trichomonas None seen (NONE SEEN) Urine Yeast None (NONE SEEN) Urinalysis Comment None Urine Culture Reflexed Indicated Hold Sun Top Tube Received (Received) Lactic Acid Level 1.1mmol/L (0.4-2.0) Total Bilirubin 0.6mg/dL (0.0-1.2) Aspartate Amino Transf (AST/SGOT) 17U/L (0-50) Alanine Aminotransferase (ALT/SGPT) 19U/L (0-32) Alkaline Phosphatase 66U/L (25-150) Total Protein 5.5g/dL (6.4-8.4) Albumin 3.3g/dL (3.4-5.0) Test 10/20/16 15:10 10/21/16 03:35 Neutrophils (%) (Auto) 72.7% (40-74) Lymphocytes (%) (Auto) 15.7% (14-46) Monocytes (%) (Auto) 10.6% (4-12) Eosinophils (%) (Auto) 0.3% (0-5) Basophils (%) (Auto) 0.1% (0-3) White Blood Count 7.4th/mm3 (3.8-10.1) Red Blood Count 3.01mil/mm3 (3.90-5.20) Hemoglobin 9.1g/dL (12.0-15.6) Hematocrit 27.2% (35.0-46.0) Mean Corpuscular Volume 90.4fL (81-100) Mean Corpuscular Hemoglobin 30.2pg (27.0-35.0) Mean Corpuscular Hemoglobin Concent 33.5% (32.0-37.0) Red Cell Distribution Width 12.4% (12.3-15.4) Platelet Count 223bil/L (150-400) Sodium Level 141mEq/L (134-144) Potassium Level 4.0mEq/L (3.5-5.2) Chloride Level 106mEq/L (97-108) Carbon Dioxide Level 22mmol/L (18-29) Blood Urea Nitrogen 9mg/dL (6-20) Creatinine 0.54mg/dL (0.57-1.00) Estimat Glomerular Filtration Rate 182mL/min (>59) Glucose Level 90mg/dL (60-99) Calcium Level 7.8mg/dL (8.5-10.1) Procalcitonin 0.69ng/mL (0.00-0.08) Discharge Medications Discharge Medications Ascorbic Acid (Vitamin C) 250 Mg Tab.chew 250 MG PO DAILY Prescribed by: VANESSA BARBOSA MD Ferrous Sulfate (Ferrous Sulfate) 325 Mg Tablet.dr 325 MG PO DAILY Prescribed by: VANESSA BARBOSA MD Sulfamethoxazole/Trimeth 800-160 mg (Bactrim DS) 1 Each Tablet 1 TABLET PO BID Use up the bottle of antibiotics that you already have from before admission Prescribed by: VANESSA BARBOSA MD Followup Plan Discharge Diet: No restrictions Discharge Activity: No restrictions Patient Instructions Finish up the bottle of antibiotics - Sulfamethoxazole, that you already have from before admission. Follow-up Provider: Eben Corbett ND Follow-up with PCP in: 1 week Time spent 40 minutes Laisha Barbosa MD Oct 21, 2016 10:36
== END 2016-10-21 11:10 | disposition home or self-care (01) | DRG 689 ==
LOC: SED 18:33 → MPC 23:49
PROVIDERS: ADMIT Hospitalist; ATTEND Hospitalist
DX: N10 Acute pyelonephritis (principal); J18.9 Pneumonia, unspecified organism; E87.1 Hypo-osmolality and hyponatremia; J98.11 Atelectasis; B96.20 Unspecified Escherichia coli [E. coli] as the cause of diseases classified elsewhere; D64.9 Anemia, unspecified